=== PATIENT | female | born 1955 | race Caucasian/White ===

== ENCOUNTER 2017-08-25 20:22 | Observation (INO) ==
[2017-08-25] MEDS ORDERED: Aspirin 81 MG TAB.CHEW PO ONE (21:08)
--- NOTE | 2017-08-25 21:11 | Emergency Department Note ---
Disposition Clinical Impression: Chest pain Qualifiers: Chest pain type: unspecified Qualified Code(s): R07.9 - Chest pain, unspecified Disposition: Admitted As Inpatient Condition: Good Referrals: Gregory Todd DO [Primary Care Provider] - Forms: ED Satisfaction Letter Time of Disposition: 23:21 Chest Pain HPI - General Chief Complaint: ED Chest Pain Stated Complaint: chest pain, high heart rate, Time Seen by Provider: 08/25/17 21:00 Source: patient Mode of arrival: ambulatory Limitations: no limitations Vital Signs Reviewed: Yes Nursing Notes Reviewed: Yes - History of Present Illness HPI Narrative: 61-year-old female with a history of hypertension, diabetes, status post stents on aspirin and Brilenta presents for evaluation of chest pain. Patient states symptom onset was just prior to arrival. Patient describes retrosternal chest pressure with radiation to her left shoulder and left jaw. Patient states that over the past couple days she has been having intermittent left arm pain. Patient reports some nausea but no vomiting. No diaphoresis. No fevers or cough. Patient states his symptoms were nonexertional. No reproducible pain. Patient denies having history of a heart attack but does state that she had stents placed. Patient states that a couple days ago she did have a headache with some vomiting but otherwise she was feeling okay. Severity scale (1-10): 6 - Related Data Home Medications Medication Instructions Recorded Confirmed Atorvastatin [Lipitor] 40 mg PO DAILY 08/24/15 08/25/17 Gabapentin [Neurontin] 600 mg PO TID 08/24/15 08/25/17 Promethazine HCl 12.5 mg PO TID PRN 08/24/15 08/25/17 SUMAtriptan succinate [Imitrex] 50 mg PO Q2H 08/24/15 08/25/17 Ticagrelor [Brilinta] 90 mg PO BID 08/24/15 08/25/17 metFORMIN [Glucophage] 500 mg PO BIDWM 08/24/15 08/25/17 Aspirin 81 mg PO DAILY 01/26/16 08/25/17 Esomeprazole Magnesium [Nexium] 40 mg PO DAILY 01/26/16 08/25/17 Levothyroxine [Synthroid] 88 mcg PO 0630 01/26/16 08/25/17 Losartan Potassium [Cozaar] 50 mg PO BID 01/26/16 08/25/17 Metoprolol XL (24 HR) Succ [Toprol 25 mg PO DAILY 01/26/16 08/25/17 Xl] Lactobacillus Acidophilus 1 mg PO DAILY 08/25/17 08/25/17 [Acidophilus Probiotic] Topiramate [Topiramate] 50 mg PO DAILY 08/25/17 08/25/17 Allergies Allergy/AdvReac Type Severity Reaction Status Date / Time No Known Allergies Allergy Verified 03/06/17 14:32 All systems ED: reviewed and negative except as stated. Constitutional: Denies: fever Cardiovascular: Reports: chest pain Respiratory: Denies: cough, dyspnea Gastrointestinal: Reports: nausea. 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 Absent : tenderness - Respiratory Respiratory exam: Present: normal lung sounds bilaterally. Absent: respiratory distress - Cardiovascular Cardiovascular exam: Present: regular rate, normal rhythm. Absent: systolic murmur - Abdominal Exam Abdominal exam: Present: soft, Non-Tender - Extremities Exam Extremities exam: Present: normal inspection. Absent: pedal edema - Back Exam Back exam: Present: normal inspection - Neurological Exam Neurological exam: Present: alert, oriented X3 - Skin Skin exam: Present: warm, dry, intact, normal color Course Course Narrative: Patient presents with concerns of chest pain. Patient will get a cardiopulmonary evaluation with EKG, chest x-ray troponin. - Reevaluation(s) Reevaluation #1: Patient seen and examined. Patient denies any needs at this time. Time: 21:47 Reevaluation #2: Patient seen and examined. Patient states that the nitroglycerin did not significantly affect her pain. Patient states that her pain has decreased since initial evaluation. Patient's resting comfortably. Given the patient's history is risk factors the patient is high risk and will be admitted for continued evaluation likely provocative cardiopulmonary testing. Time: 22:32 Reevaluation #3: Patient's resting comfortably. No acute distress. Patient's using her phone sitting up. Time: 23:20 Vital Signs Temperature 98.0 F 08/25/17 20:26 Pulse Rate 76 08/25/17 20:26 Respiratory Rate 14 08/25/17 20:26 Blood Pressure 189/103 08/25/17 20:26 O2 Sat by Pulse Oximetry 98 08/25/17 20:26 Temperature 98.0 F 08/25/17 20:26 Pulse Rate 69 08/25/17 22:55 Respiratory Rate 16 08/25/17 22:55 Blood Pressure 129/67 08/25/17 22:55 O2 Sat by Pulse Oximetry 95 08/25/17 22:55 Oxygen Delivery Oxygen Delivery Room Air Chest Pain - MDM Narrative Medical decision making narrative: Patient presents for concerns of chest pain. Patient did have a concerning history with chest pain her left arm left neck and jaw. Patient's chest pain became more pronounced a day but has had intermittent episodes in her left arm and jaw over the past few days. Appears to be nonexertional. Patient likely has some element of unstable angina. Patient does have risk factors including stent placement, hypertension diabetes. Patient's EKG does show some changes from prior EKG in 2016. Patient was given aspirin as well as nitroglycerin. Patient symptoms are less likely consistent with a pulmonary embolism. Patient is not tachycardic, tachypnea or hypoxic. Patient does not have a pleuritic component to her chest pain. Patient will be admitted to the hospital service for further evaluation and monitoring of her chest pain with provocative testing and serial evaluations. - Lab Data Lab results reviewed: Yes I reviewed the patient's lab results. Result diagrams: 08/25/17 21:00 08/25/17 21:00 Lab Results 08/25/17 08/25/17 08/25/17 Range/Units 21:00 21:00 21:00 WBC 7.5 (4.3-11.1) K/mcL RBC 4.34 (3.82-4.97) M/mcL Hgb 13.1 (11.5-15.4) g/dL Hct 41.2 (35.3-44.9) % MCV 94.9 (83.0-100.0) fL MCH 30.2 (28.0-33.3) pg MCHC 31.8 (31.6-35.5) g/dL RDW 13.5 (11.5-14.5) % Plt Count 277 (140-400) K/mcL MPV 10.0 (9.4-12.4) fL Immature Gran % 0.4 (0-4) % Seg Neutrophils % 54.5 % Lymphocytes % 29.4 % Monocytes % 12.0 % Eosinophils % 2.9 % Basophils % 0.8 % Neutrophils # 4.1 (1.6-8.9) K/mcL Lymphocytes # 2.2 (0.6-4.6) K/mcL Monocytes # 0.9 (0.0-1.3) K/mcL Eosinophils # 0.2 (0.0-0.6) K/mcL Basophils # 0.1 (0.0-0.2) K/mcL PT 16.0 H (9.4-12.1) Seconds INR 1.5 APTT 41.9 H (26.0-36.0) Seconds Sodium (136-145) mEq/L Potassium (3.5-5.1) mEq/L Chloride (98-107) mEq/L Carbon Dioxide (23-29) mEq/L BUN (6-20) mg/dL Creatinine (0.60-1.20) mg/dL Est GFR ( Amer) (> 60) Est GFR (Non-Af Amer) (> 60) BUN/Creatinine Ratio (6-26) Glucose (70-105) mg/dL Calculated Osmolality (280-300) Calcium (8.6-10.3) mg/dL Troponin I (< 0.04) ng/mL B-Natriuretic Peptide 27 (Less than 100) pg/mL 08/25/17 Range/Units 21:00 WBC (4.3-11.1) K/mcL RBC (3.82-4.97) M/mcL Hgb (11.5-15.4) g/dL Hct (35.3-44.9) % MCV (83.0-100.0) fL MCH (28.0-33.3) pg MCHC (31.6-35.5) g/dL RDW (11.5-14.5) % Plt Count (140-400) K/mcL MPV (9.4-12.4) fL Immature Gran % (0-4) % Seg Neutrophils % % Lymphocytes % % Monocytes % % Eosinophils % % Basophils % % Neutrophils # (1.6-8.9) K/mcL Lymphocytes # (0.6-4.6) K/mcL Monocytes # (0.0-1.3) K/mcL Eosinophils # (0.0-0.6) K/mcL Basophils # (0.0-0.2) K/mcL PT (9.4-12.1) Seconds INR APTT (26.0-36.0) Seconds Sodium 142 (136-145) mEq/L Potassium 3.4 L (3.5-5.1) mEq/L Chloride 107 (98-107) mEq/L Carbon Dioxide 25 (23-29) mEq/L BUN 20 (6-20) mg/dL Creatinine 0.79 (0.60-1.20) mg/dL Est GFR ( Amer) > 60 (> 60) Est GFR (Non-Af Amer) > 60 (> 60) BUN/Creatinine Ratio 25 (6-26) Glucose 104 (70-105) mg/dL Calculated Osmolality 297 (280-300) Calcium 9.6 (8.6-10.3) mg/dL Troponin I < 0.03 (< 0.04) ng/mL B-Natriuretic Peptide (Less than 100) pg/mL - Radiology Data Radiology results reviewed: Yes I reviewed the patient's radiology results. Chest X-Ray 08/25/17 21:01 IMPRESSION: No acute process. D/ / Joseph Issa MD / Joseph Issa MD Interpreting Provider: Joseph Issa MD - EKG Data EKG attestation: Yes I reviewed and interpreted this EKG. EKG shows normal: sinus rhythm Rate: normal Rhythm: NSR Yoder/QRS: left axis deviation Q waves: v1, v2, v3 QRS morphology: poor R-wave progression When compared to previous EKG there are: changes noted Interpretation: no acute changes, nonspecific ST-T wave changes Heart Score - Score History: Highly Suspicious EKG: Non Specific repolarisation Disturbance Age: 45-65 Risk Factors: Equal/Greater than 3 risk factor or history of atherosclerotic disease Troponin: Less than normal limit HEART Score Total: 6 S.B.A.R. - S.B.A.RAinsley Situation: Demographics Background: Presenting Complaint Assessment: Vital Signs, Patient/Family Expectation Recommendation: Barrier(s) to disposition, Recommendation based on pending studies, treatments, or consults S.B.A.RAinsley Report Given to: Dr. Douglas ColemanBAinsleyAAlberto Repor Time: 23:08
[2017-08-25 21:18] LABS: Basophils # 0.1 K/mcL (0.0-0.2); Basophils % 0.8 %; Eosinophils # 0.2 K/mcL (0.0-0.6); Eosinophils % 2.9 %; Hematocrit 41.2 % (35.3-44.9); Hemoglobin 13.1 g/dL (11.5-15.4); Immature Granulocytes % 0.4 % (0-4); Lymphocytes # 2.2 K/mcL (0.6-4.6); Lymphocytes % 29.4 %; Mean Corpuscular HGB Conc 31.8 g/dL (31.6-35.5); Mean Corpuscular Hemoglobin 30.2 pg (28.0-33.3); Mean Corpuscular Volume 94.9 fL (83.0-100.0); Monocytes # 0.9 K/mcL (0.0-1.3); Neutrophils # 4.1 K/mcL (1.6-8.9); Platelet Count 277 K/mcL (140-400); Red Blood Count 4.34 M/mcL (3.82-4.97); Red Cell Distribution Width 13.5 % (11.5-14.5); Segmented Neutrophils % 54.5 %
[2017-08-25 21:39] LABS: BUN/Creatinine Ratio 25 (6-26); Blood Urea Nitrogen 20 mg/dL (6-20); Calcium 9.6 mg/dL (8.6-10.3); Carbon Dioxide 25 mEq/L (23-29); Chloride 107 mEq/L (98-107); Glucose 104 mg/dL (70-105); Osmolality,Calculated 297 (280-300); Potassium 3.4 mEq/L (3.5-5.1); Sodium 142 mEq/L (136-145); Troponin I < 0.03 ng/mL (< 0.04); eGFR For African Americans > 60 (> 60); eGFR For Non-African Americans > 60 (> 60)
[2017-08-25] MEDS: Nitroglycerin 0.4 MG TAB.SUBL SL PRN ×2 (21:47→22:04)
[2017-08-25 21:58] LABS: INR 1.5
[2017-08-25 22:00] LABS: Activated Partial Thrombo Time 41.9 Seconds (26.0-36.0)
--- NOTE | 2017-08-25 22:00 | Emergency Department Note ---
Disposition Clinical Impression: Chest pain Qualifiers: Chest pain type: unspecified Qualified Code(s): R07.9 - Chest pain, unspecified Disposition: Admitted As Inpatient Condition: Good Referrals: Gregory Todd DO [Primary Care Provider] - Forms: ED Satisfaction Letter General Adult HPI - General Chief complaint: ED Chest Pain Stated complaint: chest pain, high heart rate, Time Seen by Provider: 08/25/17 21:00 Source: patient Mode of arrival: ambulatory Limitations: no limitations Nursing Notes Reviewed: Yes Vital Signs Reviewed: Yes - History of Present Illness Pain Scale: 6 - Related Data Home Medications Medication Instructions Recorded Confirmed Atorvastatin [Lipitor] 40 mg PO DAILY 08/24/15 08/25/17 Gabapentin [Neurontin] 600 mg PO TID 08/24/15 08/25/17 Promethazine HCl 12.5 mg PO TID PRN 08/24/15 08/25/17 SUMAtriptan succinate [Imitrex] 50 mg PO Q2H 08/24/15 08/25/17 Ticagrelor [Brilinta] 90 mg PO BID 08/24/15 08/25/17 metFORMIN [Glucophage] 500 mg PO BIDWM 08/24/15 08/25/17 Aspirin 81 mg PO DAILY 01/26/16 08/25/17 Esomeprazole Magnesium [Nexium] 40 mg PO DAILY 01/26/16 08/25/17 Levothyroxine [Synthroid] 88 mcg PO 0630 01/26/16 08/25/17 Losartan Potassium [Cozaar] 50 mg PO BID 01/26/16 08/25/17 Metoprolol XL (24 HR) Succ [Toprol 25 mg PO DAILY 01/26/16 08/25/17 Xl] Lactobacillus Acidophilus 1 mg PO DAILY 08/25/17 08/25/17 [Acidophilus Probiotic] Topiramate [Topiramate] 50 mg PO DAILY 08/25/17 08/25/17 Allergies Allergy/AdvReac Type Severity Reaction Status Date / Time No Known Allergies Allergy Verified 03/06/17 14:32 Constitutional: Denies: fever Cardiovascular: Reports: chest pain Respiratory: Denies: cough, dyspnea Gastrointestinal: Reports: nausea. 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 - Social History Smoking Status: Never smoker Smokeless Tobacco Status: No Alcohol use: Reports: none Drug use: Reports: none Physical Exam - General Limitations: no limitations General appearance: alert, in no apparent distress Course Vital Signs Temperature 98.0 F 08/25/17 20:26 Pulse Rate 76 08/25/17 20:26 Respiratory Rate 14 08/25/17 20:26 Blood Pressure 189/103 08/25/17 20:26 O2 Sat by Pulse Oximetry 98 08/25/17 20:26 Temperature 98.0 F 08/25/17 20:26 Pulse Rate 69 08/25/17 22:55 Respiratory Rate 16 08/25/17 22:55 Blood Pressure 129/67 08/25/17 22:55 O2 Sat by Pulse Oximetry 95 08/25/17 22:55 Oxygen Delivery Oxygen Delivery Room Air Medical Decision Making - Lab Data Result diagrams: 08/25/17 21:00 08/25/17 21:00 Lab Results 08/25/17 08/25/17 08/25/17 Range/Units 21:00 21:00 21:00 WBC 7.5 (4.3-11.1) K/mcL RBC 4.34 (3.82-4.97) M/mcL Hgb 13.1 (11.5-15.4) g/dL Hct 41.2 (35.3-44.9) % MCV 94.9 (83.0-100.0) fL MCH 30.2 (28.0-33.3) pg MCHC 31.8 (31.6-35.5) g/dL RDW 13.5 (11.5-14.5) % Plt Count 277 (140-400) K/mcL MPV 10.0 (9.4-12.4) fL Immature Gran % 0.4 (0-4) % Seg Neutrophils % 54.5 % Lymphocytes % 29.4 % Monocytes % 12.0 % Eosinophils % 2.9 % Basophils % 0.8 % Neutrophils # 4.1 (1.6-8.9) K/mcL Lymphocytes # 2.2 (0.6-4.6) K/mcL Monocytes # 0.9 (0.0-1.3) K/mcL Eosinophils # 0.2 (0.0-0.6) K/mcL Basophils # 0.1 (0.0-0.2) K/mcL PT 16.0 H (9.4-12.1) Seconds INR 1.5 APTT 41.9 H (26.0-36.0) Seconds Sodium (136-145) mEq/L Potassium (3.5-5.1) mEq/L Chloride (98-107) mEq/L Carbon Dioxide (23-29) mEq/L BUN (6-20) mg/dL Creatinine (0.60-1.20) mg/dL Est GFR ( Amer) (> 60) Est GFR (Non-Af Amer) (> 60) BUN/Creatinine Ratio (6-26) Glucose (70-105) mg/dL Calculated Osmolality (280-300) Calcium (8.6-10.3) mg/dL Troponin I (< 0.04) ng/mL B-Natriuretic Peptide 27 (Less than 100) pg/mL 08/25/17 Range/Units 21:00 WBC (4.3-11.1) K/mcL RBC (3.82-4.97) M/mcL Hgb (11.5-15.4) g/dL Hct (35.3-44.9) % MCV (83.0-100.0) fL MCH (28.0-33.3) pg MCHC (31.6-35.5) g/dL RDW (11.5-14.5) % Plt Count (140-400) K/mcL MPV (9.4-12.4) fL Immature Gran % (0-4) % Seg Neutrophils % % Lymphocytes % % Monocytes % % Eosinophils % % Basophils % % Neutrophils # (1.6-8.9) K/mcL Lymphocytes # (0.6-4.6) K/mcL Monocytes # (0.0-1.3) K/mcL Eosinophils # (0.0-0.6) K/mcL Basophils # (0.0-0.2) K/mcL PT (9.4-12.1) Seconds INR APTT (26.0-36.0) Seconds Sodium 142 (136-145) mEq/L Potassium 3.4 L (3.5-5.1) mEq/L Chloride 107 (98-107) mEq/L Carbon Dioxide 25 (23-29) mEq/L BUN 20 (6-20) mg/dL Creatinine 0.79 (0.60-1.20) mg/dL Est GFR ( Amer) > 60 (> 60) Est GFR (Non-Af Amer) > 60 (> 60) BUN/Creatinine Ratio 25 (6-26) Glucose 104 (70-105) mg/dL Calculated Osmolality 297 (280-300) Calcium 9.6 (8.6-10.3) mg/dL Troponin I < 0.03 (< 0.04) ng/mL B-Natriuretic Peptide (Less than 100) pg/mL Attestation Statement - Attestation Attestation: I, Arsh Aquino MD, personally evaluated this patient and discussed their management with the resident physician. I reviewed the resident's note and agree with the documented findings, medical decision making, and plan of care. 61-year-old female presents to the emergency department with a complaint of some mid substernal chest pains which started a few hours prior to arrival. Onset was while at rest. She complains of shortness of breath associated with the pain. Nausea but no vomiting. No diaphoresis. She also complains of palpitations and felt like her heart was racing. Patient does have a prior history of coronary artery disease and has a coronary artery stent. She also admits that over the past 2 or 3 days she has been having some pains in her left arm intermittently that sometimes radiates up into the left side of her neck and the left jaw. She does have pain in the left arm tonight associated with the chest pain. On examination patient is a well-developed well-nourished well-appearing female in no acute distress. She is alert and oriented 3. There is no cyanosis or diaphoresis. Chest is nontender to palpation. Breath sounds are clear and equal bilaterally. Heart regular rate and rhythm. Abdomen soft and nontender with normal bowel sounds. Labs reviewed. Troponin normal. Chest x-ray negative. EKG shows a normal sinus rhythm with ventricular rate is 75. Poor R wave progression consistent with an old anterior NV. This was not present on her previous EKG dated 2015. There are no acute ST segment elevations or depressions or T-wave inversions. The hospitalist, Dr. Cole, was consulted and accepted admission of the patient.
--- NOTE | 2017-08-26 00:02 | Internal Med History&Physical ---
Date of Encounter: 08/26/17 Time of Encounter: 23:53 Internal Medicine - H&P: HPI Chief complaint: chest pain Admitted From: Emergency Dept Plans for Post Hospital Care: Home History of present illness: Ms. 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 chest pain became worse and she came into the emergency room was given sublingual 2 and the chest is subsided but not completely resolved EKG was abnormal showing anteroseptal WI age undetermined with poor r wave progression in the precordial leads patient will be admitted for follow evaluation will trend troponin and consult cardiology Past Med Surg Social Fam HX - Past Medical History Medical history: arthritis, diabetes, GERD, hyperlipidemia, hypertension, thyroid disease Psychiatric history: anxiety, depression - Past Surgical History Surgical History: thyroidectomy - Social History Smoking Status: Never smoker Smokeless Tobacco Status: No Alcohol use: none Drug use: none Internal Medicine - H&P: Meds Atorvastatin [Lipitor] 40 mg PO DAILY 08/24/15 [History] Gabapentin [Neurontin] 600 mg PO TID 08/24/15 [History] Promethazine HCl 12.5 mg PO TID PRN 08/24/15 [History] SUMAtriptan succinate [Imitrex] 50 mg PO Q2H 08/24/15 [History] Ticagrelor [Brilinta] 90 mg PO BID 08/24/15 [History] metFORMIN [Glucophage] 500 mg PO BIDWM 08/24/15 [History] Aspirin 81 mg PO DAILY 01/26/16 [History] Esomeprazole Magnesium [Nexium] 40 mg PO DAILY 01/26/16 [History] Levothyroxine [Synthroid] 88 mcg PO 0630 01/26/16 [History] Losartan Potassium [Cozaar] 50 mg PO BID 01/26/16 [History] Metoprolol XL (24 HR) Succ [Toprol Xl] 25 mg PO DAILY 01/26/16 [History] Lactobacillus Acidophilus [Acidophilus Probiotic] 1 mg PO DAILY 08/25/17 [ History] Topiramate [Topiramate] 50 mg PO DAILY 08/25/17 [History] 3 Allergy/AdvReac Type Severity Reaction Status Date / Time No Known Allergies Allergy Verified 03/06/17 14:32 All Systems PM: A 10-system review of systems was performed and is negative for pertinent findings except as documented above in the HPI. - Constitutional Vitals: Temp Pulse Resp BP Pulse Ox 98.0 F 69 16 129/67 95 08/25/17 20:26 08/25/17 22:55 08/25/17 22:55 08/25/17 22:55 08/25/17 22:55 - Head Head exam: Present: atraumatic, normocephalic - Eye Eye exam: Present: PERRL, conjuntiva pink, sclera anicteric Pupils: Present: PERRL - Neck Neck exam general surgery: Present: supple, trachea midline. Absent: lymphadenopathy - Respiratory Respiratory exam: Present: CTAB. Absent: accessory muscle use, rales, rhonchi, wheezes - Cardiovascular Cardiovascular exam: Present: RRR, +S1, +S2. Absent: diastolic murmur, gallop, rubs, systolic murmur - GI/Abdominal GI/Abdominal exam: Present: normal bowel sounds, soft, no peritoneal signs. Absent: distended, tenderness - Extremities Exam Extremities exam: Present: warm, radial pulses palpable and symmetrical. Absent : calf tenderness, cyanotic, pedal edema Internal Med - H&P Results - Labs CBC & Chem 7: 08/25/17 21:00 08/25/17 21:00 Labs: Short CBC 08/25/17 Range/Units 21:00 WBC 7.5 (4.3-11.1) K/mcL Hgb 13.1 (11.5-15.4) g/dL Hct 41.2 (35.3-44.9) % Plt Count 277 (140-400) K/mcL Neutrophils # 4.1 (1.6-8.9) K/mcL BMP 08/25/17 21:00 Sodium 142 Potassium 3.4 L Chloride 107 Carbon Dioxide 25 BUN 20 Creatinine 0.79 Glucose 104 Calcium 9.6 Cardiac Enzymes 08/25/17 Range/Units 21:00 Troponin I < 0.03 (< 0.04) ng/mL - Impressions ITS Impressions Chest X-Ray 08/25/17 21:01 IMPRESSION: No acute process. D/ / Joseph Issa MD / Joseph Issa MD Interpreting Provider: Joseph Issa MD - Assessment and plan (1) HTN (hypertension) Current Visit: Yes Status: Chronic Assessment and plan: Chronic and well controlled Qualifiers: Hypertension type: essential hypertension Qualified Code(s): I10 - Essential (primary) hypertension (2) Diabetes 1.5, managed as type 2 Current Visit: Yes Status: Chronic Assessment and plan: Chronic start sliding scale (3) Hyperlipemia Current Visit: Yes Status: Chronic Qualifiers: Hyperlipidemia type: pure hypercholesterolemia Qualified Code(s): E78.00 - Pure hypercholesterolemia, unspecified; E78.0 - Pure hypercholesterolemia (4) Chest pain Current Visit: Yes Status: Acute Assessment and plan: Chest pain in a patient with previous stent record of intervention is not available with the risk factors of hypertension diabetes high cholesterol and obesity chest pain is very suggestive of cardiac chest pain we will trend troponin and consult cardiology in a.m. to decide on stress test versus cardiac catheter Qualifiers: Chest pain type: precordial pain Qualified Code(s): R07.2 - Precordial pain - Time Spent With Patient Total time spent is greater than 50% in coordination of care (as documented) at patient's floor/unit and/or counseling patient:
[2017-08-26] MEDS ORDERED: Acetaminophen 325 MG TABLET PO PRN (00:07)
[2017-08-26] MEDS ORDERED: Naloxone 0.4 MG/ML INJ IVP PRN (00:07)
[2017-08-26] MEDS ORDERED: SUMAtriptan succinate 50 MG TABLET PO PRN (00:15)
[2017-08-26 00:54] LABS: Hematocrit 37.8 % (35.3-44.9); Hemoglobin 12.2 g/dL (11.5-15.4); Mean Corpuscular HGB Conc 32.3 g/dL (31.6-35.5); Mean Corpuscular Hemoglobin 30.4 pg (28.0-33.3); Mean Corpuscular Volume 94.3 fL (83.0-100.0); Platelet Count 247 K/mcL (140-400); Red Blood Count 4.01 M/mcL (3.82-4.97); Red Cell Distribution Width 13.6 % (11.5-14.5)
[2017-08-26 01:07] LABS: Alanine Aminotransferase 22 Units/L (7-52); Albumin/Globulin Ratio 1.7 (1.1-2.2); Alkaline Phosphatase 59 Units/L (34-104); Aspartate Amino Transferase 18 Units/L (13-39); BUN/Creatinine Ratio 33 (6-26); Bilirubin,Total 0.3 mg/dL (0.3-1.0); Blood Urea Nitrogen 24 mg/dL (6-20); Calcium 9.2 mg/dL (8.6-10.3); Carbon Dioxide 24 mEq/L (23-29); Chloride 110 mEq/L (98-107); Chol/HDL Ratio 2.9 (0-4.9); Cholesterol 160 mg/dL (< 200); Globulin 2.3 g/dL (2.4-3.5); Glucose 90 mg/dL (70-105); HDL Cholesterol 55 mg/dL (40-59); LDL Cholesterol,Calculated 65 mg/dL (0-99); Osmolality,Calculated 296 (280-300); Potassium 3.8 mEq/L (3.5-5.1); Sodium 141 mEq/L (136-145); Total Protein 6.3 g/dL (6.4-8.9); Triglycerides 200 mg/dL (< 150); eGFR For African Americans > 60 (> 60); eGFR For Non-African Americans > 60 (> 60)
[2017-08-26] MEDS: 0.9 % Sodium Chloride 1,000 ML IVC SCH ×2 (01:51→19:53)
[2017-08-26] MEDS ORDERED: D5% in Water 1,000 ML IVC PRN (13:05)
[2017-08-26] MEDS ORDERED: *HR* Dextrose 50 % in Water (Syg) 50 ML SYRINGE IVP PRN (13:05)
[2017-08-26] MEDS ORDERED: Dextrose Gel 15 GM/37.5 ML TUBE PO PRN ×2 (13:05)
[2017-08-26 13:22] LABS: Estimated Average Glucose 123 mg/dl; Hemoglobin A1C 5.9 %
[2017-08-26] MEDS: Aspirin 81 MG TAB.CHEW PO SCH (14:19)
[2017-08-26] MEDS: Gabapentin 300 MG CAPSULE PO SCH ×3 (14:19→19:55)
[2017-08-26] MEDS: Metoprolol XL (24 HR) Succ 25 MG TAB.ER.24H PO SCH (14:19)
[2017-08-26] MEDS: *HR* Ticagrelor 90 MG TABLET PO SCH ×2 (14:19→19:55)
[2017-08-26] MEDS: Topiramate 25 MG TABLET PO SCH (14:19)
[2017-08-26] MEDS: Lactobacillus 1 EACH CAP.SPRINK PO SCH (14:22)
--- NOTE | 2017-08-26 15:43 | Discharge Summary ---
- NOTES TO OUTPATIENT PROVIDER Notes to Outpatient Provider: Pt was admitted for chest pain. Stress negative, pEF, chest xray negative, troponins negative. Pain is non-cardiac and is reproducible with adduction of left arm and palpation to left anterior chest wall. Orders not resulted at time of discharge: Pending orders 08/26/17 08:23 NM dc perf SPECT multi [NM] Routine 08/26/17 08:25 EV echocardiogram Routine Date of Encounter: 08/26/17 Time of Encounter: 15:20 - Discharge Diagnosis (1) Chest pain Priority: Primary Status: Acute Assessment and Plan: Pt reports that she has pain in her left shoulder and left anterior chest for 2- 3 days, states that on the day of admission it was chest pressure and tightness with some nausea. Pain was relieved with nitroglycerin in the ED. EKG was abnormal with age indeterminate [place], troponins negative, Chest xray negative for acute process. Pain is reproducible with adduction of left arm and with palpation to left anterior chest. Pain is non-cardiac in nature, more musculoskeletal, pt has history of arthritis. Echo is still pending, will wait on completion and read prior to discharge. Continue telemetry Continue home medications Lidoderm patch to left shoulder Qualifiers: Chest pain type: precordial pain Qualified Code(s): R07.2 - Precordial pain (2) Diabetes 1.5, managed as type 2 Priority: Secondary Status: Chronic Assessment and Plan: A1c 5.9%. Continue SSI, accuchecks achs, diabetic diet. (3) HTN (hypertension) Priority: Secondary Status: Chronic Assessment and Plan: Chronic. Continue home medications. Qualifiers: Hypertension type: essential hypertension Qualified Code(s): I10 - Essential (primary) hypertension (4) Hyperlipemia Priority: Secondary Status: Chronic Assessment and Plan: Chronic. Continue home medications. Qualifiers: Hyperlipidemia type: pure hypercholesterolemia Qualified Code(s): E78.00 - Pure hypercholesterolemia, unspecified; E78.0 - Pure hypercholesterolemia (5) Migraines Priority: Secondary Status: Chronic Assessment and Plan: Pt reports history of migraines, last one last night on admission. Pt did get NTG Sl in the ER. Pt normally takes Imitrex at home, continue prn. Qualifiers: Migraine type: unspecified Status migrainosus presence: without status migrainosus Intractability: not intractable Qualified Code(s): G43.909 - Migraine, unspecified, not intractable, without status migrainosus (6) DVT prophylaxis Priority: Secondary Status: Acute Assessment and Plan: Observation. Pt has been ambulatory. Hospital course: Ms. Esparza is a 61 year old female with PMH of migraines, HTN, HLD, chronic back pain, DM. Pt presents for left shoulder pain with radiation to left chest for 2 days prior to arrival. EKG showed age indeterminate KS, troponins were negative, chest xray negative. Echo is pending at this time. Chest and shoulder pain are reproducible with adduction of left arm and with palpation to left anterior chest wall. Pain is non-cardiac in nature. Her labs are stable, vitals are stable and WNL. Pt is ready for discharge if echocardiogram is normal. Discharge discussed with: patient, family - Time Spent with Patient Total time spent providing and/or coordinating discharge services: Less than 30 minutes - Discharge Medications Home Medications: Atorvastatin [Lipitor] 40 mg PO DAILY 08/24/15 [History] Gabapentin [Neurontin] 600 mg PO TID 08/24/15 [History] Promethazine HCl 12.5 mg PO TID PRN 08/24/15 [History] SUMAtriptan succinate [Imitrex] 50 mg PO Q2H 08/24/15 [History] Ticagrelor [Brilinta] 90 mg PO BID 08/24/15 [History] metFORMIN [Glucophage] 500 mg PO BIDWM 08/24/15 [History] Aspirin 81 mg PO DAILY 01/26/16 [History] Esomeprazole Magnesium [Nexium] 40 mg PO DAILY 01/26/16 [History] Levothyroxine [Synthroid] 88 mcg PO 0630 01/26/16 [History] Losartan Potassium [Cozaar] 50 mg PO BID 01/26/16 [History] Metoprolol XL (24 HR) Succ [Toprol Xl] 25 mg PO DAILY 01/26/16 [History] Lactobacillus Acidophilus [Acidophilus Probiotic] 1 mg PO DAILY 08/25/17 [ History] Topiramate [Topiramate] 50 mg PO DAILY 08/25/17 [History] Allergies/Adverse Reactions: 3 Allergy/AdvReac Type Severity Reaction Status Date / Time No Known Allergies Allergy Verified 03/06/17 14:32 Date of admission: 08/25/17 23:41 Primary care physician: Gregory Todd DO Discharging clinician: Anastasia Edge Anticipated date of discharge: 08/26/17 - Constitutional Vitals: Temp Pulse Resp BP Pulse Ox 97.5 F L 71 16 151/83 96 08/26/17 06:57 08/26/17 06:57 08/26/17 06:57 08/26/17 06:57 08/26/17 06:57 - Patient Status Disposition: Home, Self-Care Condition: Good Functional capacity at discharge: independent ambulation Overall status at discharge: patient is progressing back to baseline - Discharge Instructions Follow Up With: Gregory Todd DO [Primary Care Provider] - Additional Instructions: Please follow up with your PCP in the next 5-7 days for a recheck. Return to the ER as needed for any other problems or concerns. Take your medications as directed. REturn to your normal diet and activities as tolerated. - Diet and Activity Activity: increase activity as tolerated Diet: diabetic diet, low fat, low cholesterol
[2017-08-26] MEDS: traMADol 50 MG TABLET PO PRN (16:30)
[2017-08-26] MEDS: Insulin LISPRO 300 UNITS/3 ML VIAL SQ SCH (17:09)
--- NOTE | 2017-08-26 19:27 | Electrocardiograph Report ---
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
[2017-08-26] MEDS ORDERED: Insulin LISPRO 300 UNITS/3 ML VIAL SQ SCH (21:00)
[2017-08-27 05:51] LABS: Basophils # 0.1 K/mcL (0.0-0.2); Basophils % 1.1 %; Eosinophils # 0.3 K/mcL (0.0-0.6); Eosinophils % 5.3 %; Hematocrit 36.8 % (35.3-44.9); Hemoglobin 11.7 g/dL (11.5-15.4); Immature Granulocytes % 0.4 % (0-4); Lymphocytes # 1.7 K/mcL (0.6-4.6); Lymphocytes % 29.9 %; Mean Corpuscular HGB Conc 31.8 g/dL (31.6-35.5); Mean Corpuscular Hemoglobin 30.2 pg (28.0-33.3); Mean Corpuscular Volume 95.1 fL (83.0-100.0); Mean Platelet Volume 10.5 fL (9.4-12.4); Monocytes # 0.6 K/mcL (0.0-1.3); Monocytes % 10.8 %; Nucleated Red Blood Cells 0.4 /100 WBC (0); Platelet Count 224 K/mcL (140-400); Red Blood Count 3.87 M/mcL (3.82-4.97); Red Cell Distribution Width 13.5 % (11.5-14.5); Segmented Neutrophils % 52.5 %
[2017-08-27 06:09] LABS: BUN/Creatinine Ratio 23 (6-26); Blood Urea Nitrogen 17 mg/dL (6-20); Calcium 8.9 mg/dL (8.6-10.3); Carbon Dioxide 22 mEq/L (23-29); Chloride 111 mEq/L (98-107); Glucose 107 mg/dL (70-105); Osmolality,Calculated 290 (280-300); Potassium 3.6 mEq/L (3.5-5.1); Sodium 139 mEq/L (136-145); eGFR For African Americans > 60 (> 60); eGFR For Non-African Americans > 60 (> 60)
[2017-08-27] MEDS: Gabapentin 300 MG CAPSULE PO SCH (08:13)
[2017-08-27] MEDS: Aspirin 81 MG TAB.CHEW PO SCH (08:13)
[2017-08-27] MEDS: Topiramate 25 MG TABLET PO SCH (08:13)
[2017-08-27] MEDS: Lactobacillus 1 EACH CAP.SPRINK PO SCH (08:13)
[2017-08-27] MEDS: *HR* Ticagrelor 90 MG TABLET PO SCH (08:13)
[2017-08-27] MEDS: Insulin LISPRO 300 UNITS/3 ML VIAL SQ SCH ×2 (08:14→11:49)
[2017-08-27] MEDS: Metoprolol XL (24 HR) Succ 25 MG TAB.ER.24H PO SCH (08:14)
[2017-08-27] MEDS: traMADol 50 MG TABLET PO PRN (08:26)
--- NOTE | 2017-08-27 10:32 | Internal Med Progress Note ---
Date of Encounter: 08/27/17 Time of Encounter: 09:25 - Assessment and plan (1) Chest pain Current Visit: Yes Status: Acute Assessment and plan: Pt denies chest pain other than pain that radiates into left chest from left shoulder Echo showed LVEF 60-65%, mild LVDD, and no significant valvular dysfunction. EKG was abnormal with age indeterminate [place], troponins negative, Chest xray negative for acute process. Pain is reproducible with adduction of left arm and with palpation to left anterior chest. Pain is non-cardiac in nature, more musculoskeletal, pt has history of arthritis. Continue telemetry Continue home medications Lidoderm patch to left shoulder Qualifiers: Chest pain type: precordial pain Qualified Code(s): R07.2 - Precordial pain (2) Diabetes 1.5, managed as type 2 Current Visit: Yes Status: Chronic Assessment and plan: A1c 5.9%. Continue Metformin, accuchecks per home regimen. (3) HTN (hypertension) Current Visit: Yes Status: Chronic Assessment and plan: Chronic. Continue home medications. Well controlled . Qualifiers: Hypertension type: essential hypertension Qualified Code(s): I10 - Essential (primary) hypertension (4) Hyperlipemia Current Visit: Yes Status: Chronic Assessment and plan: Chronic. Continue home medications. Encouraged lifestyle modifications. Triglycerides elevated, Encouraged diet modifications and exercise increase. Qualifiers: Hyperlipidemia type: pure hypercholesterolemia Qualified Code(s): E78.00 - Pure hypercholesterolemia, unspecified; E78.0 - Pure hypercholesterolemia (5) Migraines Current Visit: Yes Status: Chronic Assessment and plan: Pt reports history of migraines. Pt normally takes Imitrex at home, continue prn. Qualifiers: Migraine type: unspecified Status migrainosus presence: without status migrainosus Intractability: not intractable Qualified Code(s): G43.909 - Migraine, unspecified, not intractable, without status migrainosus (6) DVT prophylaxis Current Visit: Yes Status: Acute Assessment and plan: Observation. Pt has been ambulatory. (7) Left shoulder pain Current Visit: Yes Status: Acute Assessment and plan: Pt reports left shoulder pain, onset prior to admission. Pt denies known injury. Pain worse with adduction of left arm, pain radiates into left upper chest. Xray negative for acute fracture or dislocation, noted bone spurring. Pt will be given Tramadol 50mg and lidoderm patches for home. Encouraged pt to follow up with PCP for further workup/imaging. Shoulder X-Ray 08/27/17 10:18 IMPRESSION: No acute osseous abnormality. Mild degenerative acromioclavicular spurring is noted. D/ / New Shabazz MD / New Shabazz MD Interpreting Provider: New Shabazz MD Qualifiers: Chronicity: acute Qualified Code(s): M25.512 - Pain in left shoulder - Time Spent With Patient Total time spent is greater than 50% in coordination of care (as documented) at patient's floor/unit and/or counseling patient: less than 15 minutes - Subjective Interval history: Pt was seen and assessed at bedside at 0925. She is alert and awake and states that she is ready to go home. She reports continued left shoulder pain with movement, specifically adduction of left arm. She denies chest pain other than pain that radiates into left upper chest with movement of left shoulder. She denies n/v, SOB, abdominal pain, headache, dizziness, vision changes, or diarrhea. - Constitutional Vitals: Temp Pulse Resp BP Pulse Ox 97.7 F 55 16 168/87 96 08/27/17 07:45 08/27/17 07:45 08/27/17 07:45 08/27/17 07:45 08/27/17 07:45 General appearance: Present: cooperative, A&O X 3, pleasant, no acute distress, answers questions appropriately - Head Head exam: Present: atraumatic, normal inspection, normocephalic - Eye Eye exam: Present: normal appearance, conjuntiva pink, sclera anicteric - Neck Neck exam general surgery: Present: normal inspection, supple, trachea midline. Absent: lymphadenopathy, tenderness - Respiratory Respiratory exam: Present: CTAB. Absent: accessory muscle use, rales, respiratory distress, rhonchi, wheezes - Cardiovascular Cardiovascular exam: Present: RRR, +S1, +S2. Absent: diastolic murmur, gallop, rubs, systolic murmur - GI/Abdominal GI/Abdominal exam: Present: normal bowel sounds, soft. Absent: distended, hepatomegaly, tenderness - Extremities Exam Extremities exam: Present: normal capillary refill, normal inspection, warm, radial pulses palpable and symmetrical. Absent: calf tenderness, cyanotic, pedal edema, tenderness - Expanded Upper Extremities Exam General: Present: normal inspection Upper Arm exam: Present: full ROM, tenderness. Absent: swelling Vascular exam: Present: normal capillary refill, radial pulse left. Absent: vascular compromise - Neurological Exam Neurological exam: Present: alert, oriented X3, no focal deficits. Absent: facial droop, speech deficit - Skin Skin exam: Present: dry, intact, normal color, warm. Absent: rash Internal Medicine: Result - Labs CBC & Chem 7: 08/27/17 05:13 08/27/17 05:13 Labs: Short CBC 08/27/17 Range/Units 05:13 WBC 5.7 (4.3-11.1) K/mcL Hgb 11.7 (11.5-15.4) g/dL Hct 36.8 (35.3-44.9) % Plt Count 224 (140-400) K/mcL Neutrophils # 3.0 (1.6-8.9) K/mcL BMP 08/27/17 05:13 Sodium 139 Potassium 3.6 Chloride 111 H Carbon Dioxide 22 L BUN 17 Creatinine 0.74 Glucose 107 H Calcium 8.9 - ABG Interpretation ABG results: PT/INR, D-dimer PT 16.0 Seconds (9.4-12.1) H 08/25/17 21:00 - Impressions Impressions Echocardiogram 08/26/17 08:25 Impressions: LVEF 60-65%. Normal LV chamber size, wall thickness and function. Mild left ventricular diastolic dysfunction. Normal right ventricular structure and function. No evidence of pulmonary hypertension. No significant valvular dysfunction. Left Ventricular Wall Motion: Rest Echo Findings All wall segments showed normal motion. Findings: Study Quality * Technically adequate exam. ECG Findings * Normal sinus rhythm. Left Ventricle * LVEF 60-65%. * Normal LV chamber size, wall thickness and function. * Mild left ventricular diastolic dysfunction. Right Ventricle * Normal right ventricular structure and function. Left Atrium * Mildly dilated left atrium. Right Atrium * Normal right atrial size. Interatrial Septum * Interatrial septum not well evaluated. Aortic Valve * Aortic valve not well visualized. * No aortic regurgitation. * No aortic stenosis. Mitral Valve * Normal mitral valve structure and function. * No mitral regurgitation. * No mitral stenosis. Tricuspid Valve * Normal tricuspid valve structure and function. * Trace tricuspid regurgitation. * No evidence of pulmonary hypertension. Pulmonic Valve * Pulmonic valve not well visualized. Aorta * Normally sized aortic root. Pericardium * The pericardium appears normal. IVC * The IVC is not well evaluated. Pulmonary Artery * Pulmonary artery not well visualized. Consult Discharge Plan - Plan Additional Instructions: Please follow up with your PCP in the next 5-7 days for a recheck. Return to the ER as needed for any other problems or concerns. Take your medications as directed. REturn to your normal diet and activities as tolerated. Referrals: Gregory Todd DO [Primary Care Provider] - Prescriptions: Lidocaine Patch [Lidoderm 5% patch] 1 each TP DAILY PRN #30 adh..patch PRN Reason: Pain Tramadol HCl [Ultram] 50 mg PO BID PRN 3 Days #6 tab PRN Reason: Pain
[2017-08-27 11:48] VITALS: BP 156/92
== END 2017-08-27 14:01 | disposition home or self-care (01) ==
LOC: 3BNU 20:22 → EMEROO 20:22 → 3BNU 08-26 00:47
PROVIDERS: ADMIT Internal Medicine; ATTEND Internal Medicine

== ENCOUNTER 2021-10-02 13:11 | Inpatient (IN) ==
[2021-10-02 14:19] LABS: Eosinophils % 2.3 %; Hemoglobin 7.1 g/dL (11.5-15.4)
[2021-10-02 14:21] LABS: Basophils # 0.1 K/mcL (0.0-0.2); Basophils % 0.9 %; Eosinophils # 0.2 K/mcL (0.0-0.6); Hematocrit 26.9 % (35.3-44.9); Immature Granulocytes % 0.3 % (0-4); Immature Platelets 8.3 % (1.1-6.1); Lymphocytes # 1.3 K/mcL (0.6-4.6); Lymphocytes % 19.1 %; Mean Corpuscular HGB Conc 26.4 g/dL (31.6-35.5); Mean Corpuscular Hemoglobin 19.5 pg (28.0-33.3); Mean Corpuscular Volume 73.9 fL (83.0-100.0); Mean Platelet Volume 11.1 fL (9.4-12.4); Monocytes # 0.7 K/mcL (0.0-1.3); Monocytes % 10.5 %; Neutrophils # 4.4 K/mcL (1.6-8.9); Platelet Count 173 K/mcL (140-400); Red Blood Count 3.64 M/mcL (3.82-4.97); Red Cell Distribution Width 19.9 % (11.5-14.5); Segmented Neutrophils % 66.9 %; White Blood Count 6.6 K/mcL (4.3-11.1)
[2021-10-02] MEDS ORDERED: Acetaminophen 325 MG TABLET PO ONE (14:23)
[2021-10-02 14:44] LABS: BUN/Creatinine Ratio 19 (6-26); Blood Urea Nitrogen 14 mg/dL (8-23); Calcium 8.9 mg/dL (8.6-10.3); Carbon Dioxide 25 mEq/L (23-29); Chloride 106 mEq/L (98-107); Glucose 96 mg/dL (70-105); Osmolality,Calculated 288 (280-300); Potassium 3.7 mEq/L (3.5-5.1); Sodium 139 mEq/L (136-145); Troponin I < 0.03 ng/mL (< 0.04); eGFR For African Americans > 60 (> 60); eGFR For Non-African Americans > 60 (> 60)
[2021-10-02 14:56] LABS: Activated Partial Thrombo Time 34.1 Seconds (26.0-36.0)
[2021-10-02 15:35] LABS: Anisocytosis 1+ (Not Present); Hypochromasia Present (Not Present); Large Platelets Present (Not Present); Platelet Estimate Normal (Normal); Poikilocytosis 2+ (Not Present)
[2021-10-02] MEDS ORDERED: Naloxone 0.4 MG/ML INJ IVP PRN (16:29)
[2021-10-02 17:00] LABS: Chol/HDL Ratio 2.3 (0-4.9); Cholesterol 144 mg/dL (< 200); HDL Cholesterol 63 mg/dL (40-59); LDL Cholesterol,Calculated 65 mg/dL (< 100); Magnesium 2.1 mg/dL (1.6-2.6); Phosphorous 3.5 mg/dL (2.7-4.5); Triglycerides 78 mg/dL (< 150)
[2021-10-02] MEDS ORDERED: Perflutren Lipid Microsphere 1.3 ML in 0.9 % Sodium Chloride 8.7 ML IVP PRN (17:10)
[2021-10-02] MEDS ORDERED: Morphine Sulfate 2 MG/ML SYRINGE IVP ONE (18:23)
[2021-10-02] MEDS ORDERED: Ondansetron 4 MG/2 ML VIAL IVP PRN (18:25)
[2021-10-02] MEDS ORDERED: Isovue-370 500 ML BOTTLE IVP ONE (18:29)
[2021-10-02] MEDS: niCARdipine 20 MG/200 ML MLS IVC SCH (18:40)
[2021-10-02 18:56] LABS: Red Blood Count 3.76 M/mcL (3.82-4.97); Red Cell Distribution Width 19.9 % (11.5-14.5)
[2021-10-02 18:58] LABS: Hematocrit 27.6 % (35.3-44.9); Hemoglobin 7.4 g/dL (11.5-15.4); Immature Platelets 7.5 % (1.1-6.1); Immature Reticulocyte % 34.2 % (11.0-38.0); Mean Corpuscular HGB Conc 26.8 g/dL (31.6-35.5); Mean Corpuscular Hemoglobin 19.7 pg (28.0-33.3); Mean Corpuscular Volume 73.4 fL (83.0-100.0); Mean Platelet Volume 11.2 fL (9.4-12.4); Platelet Count 166 K/mcL (140-400); Retculocyte # 0.08 M/mcL (0.05-0.10); Reticulocyte % 2.2 % (1.6-2.8); White Blood Count 5.8 K/mcL (4.3-11.1)
[2021-10-02 19:21] LABS: Alanine Aminotransferase 21 Units/L (7-52); Albumin 3.8 g/dL (3.5-5.7); Albumin/Globulin Ratio 1.2 (1.1-2.2); Alkaline Phosphatase 68 Units/L (34-104); Aspartate Amino Transferase 28 Units/L (13-39); Bilirubin,Direct 0.1 mg/dL (0.0-0.2); Bilirubin,Indirect 0.3 mg/dL (0.0-1.0); Bilirubin,Total 0.4 mg/dL (0.3-1.0); Globulin 3.2 g/dL (2.4-3.5); Iron < 10 mcg/dL (50-170); Lactate Dehydrogenase 216 Units/L (140-271); Transferrin 383 mg/dL (203-362); Troponin I < 0.03 ng/mL (< 0.04)
[2021-10-02 19:37] LABS: Ferritin < 8 ng/mL (10-120); Thyroid Stimulating Hormone 1.198 mcIU/mL (0.340-5.600)
[2021-10-02 19:39] LABS: Folate > 22.3 ng/mL (3.0-16.0); Vitamin B12 514 pg/mL (250-1100)
[2021-10-02 21:03] LABS: Hypochromasia Present (Not Present); Large Platelets Present (Not Present); Lymphocytes # 1.4 K/mcL (0.6-4.6); Monocytes # 0.4 K/mcL (0.0-1.3); Neutrophils # 4.1 K/mcL (1.6-8.9); Platelet Estimate Normal (Normal); Poikilocytosis 1+ (Not Present)
[2021-10-02 21:33] LABS: Bilirubin,Urine Negative (Negative); Blood,Urine Negative (Negative); Clarity,Urine Clear (Clear); Color,Urine Colorless (Yellow); Glucose,Urine (UA) Normal (Normal); Ketones,Urine Negative (Negative); Leukocyte Esterase,Urine Negative (Negative); Nitrite,Urine Negative (Negative); PH,Urine 7.5 pH Units (5.0-8.0); Protein,Urine Negative (Neg-Trace); Specific Gravity,Urine 1.015 (1.010-1.025); Urobilinogen,Urine Normal (Normal)
[2021-10-02] MEDS: Ciprofloxacin/Dex *EAR* Susp 7.5 ML BOTTLE BOTH EARS SCH (23:30)
[2021-10-03] MEDS: niCARdipine 20 MG/200 ML MLS IVC SCH ×4 (00:01→12:09)
[2021-10-03 02:36] LABS: Eosinophils % 0.8 %; Mean Corpuscular Volume 73.4 fL (83.0-100.0)
[2021-10-03 02:37] LABS: Basophils # 0.1 K/mcL (0.0-0.2); Basophils % 0.7 %; Eosinophils # 0.1 K/mcL (0.0-0.6); Hematocrit 28.9 % (35.3-44.9); Hemoglobin 7.7 g/dL (11.5-15.4); Immature Granulocytes % 0.4 % (0-4); Immature Platelets 6.8 % (1.1-6.1); Lymphocytes % 14.3 %; Mean Corpuscular HGB Conc 26.6 g/dL (31.6-35.5); Mean Corpuscular Hemoglobin 19.5 pg (28.0-33.3); Mean Platelet Volume 10.3 fL (9.4-12.4); Monocytes # 0.6 K/mcL (0.0-1.3); Monocytes % 7.9 %; Platelet Count 187 K/mcL (140-400); Red Blood Count 3.94 M/mcL (3.82-4.97); Red Cell Distribution Width 20.1 % (11.5-14.5); Segmented Neutrophils % 75.9 %; White Blood Count 7.2 K/mcL (4.3-11.1)
[2021-10-03 02:41] LABS: Neutrophils # 5.5 K/mcL (1.6-8.9)
[2021-10-03 02:44] LABS: INR 1.1; Prothrombin Time 11.9 Seconds (9.4-12.1)
[2021-10-03 02:49] LABS: Alanine Aminotransferase 23 Units/L (7-52); Albumin/Globulin Ratio 1.2 (1.1-2.2); Alkaline Phosphatase 74 Units/L (34-104); Aspartate Amino Transferase 27 Units/L (13-39); BUN/Creatinine Ratio 18 (6-26); Bilirubin,Total 0.6 mg/dL (0.3-1.0); Blood Urea Nitrogen 10 mg/dL (8-23); Carbon Dioxide 25 mEq/L (23-29); Chloride 104 mEq/L (98-107); Globulin 3.4 g/dL (2.4-3.5); Glucose 127 mg/dL (70-105); Osmolality,Calculated 287 (280-300); Potassium 3.5 mEq/L (3.5-5.1); Sodium 138 mEq/L (136-145); Total Protein 7.4 g/dL (6.4-8.9); eGFR For African Americans > 60 (> 60); eGFR For Non-African Americans > 60 (> 60)
[2021-10-03 03:16] LABS: Anisocytosis 2+ (Not Present); Hypochromasia Present (Not Present); Platelet Estimate Normal (Normal)
[2021-10-03 03:17] LABS: Polychromasia 1+ (Not Present)
[2021-10-03] MEDS ORDERED: *HR* Enoxaparin 40 MG/0.4 ML SYRINGE SQ SCH (06:00)
[2021-10-03] MEDS ORDERED: Nystatin POWDER 30 GM BOTTLE TP PRN (08:11)
[2021-10-03] MEDS ORDERED: Gabapentin 300 MG CAPSULE PO PRN (08:11)
[2021-10-03] MEDS: Acetaminophen 325 MG TABLET PO PRN (09:33)
[2021-10-03] MEDS: Metoprolol XL (24 HR) Succ 25 MG TAB.ER.24H PO SCH (09:33)
[2021-10-03] MEDS: Aspirin 81 MG TAB.CHEW PO SCH (09:33)
[2021-10-03] MEDS: *HR* Ticagrelor 90 MG TABLET PO SCH ×2 (09:34→20:14)
[2021-10-03] MEDS ORDERED: Prochlorperazine 10 MG/2 ML VIAL IVP ONE (10:03)
[2021-10-03] MEDS ORDERED: Ketorolac 30 MG/ML VIAL IVP ONE (10:03)
[2021-10-03] MEDS: Nitroglycerin 0.4 MG TAB.SUBL SL SCH (10:32)
[2021-10-03] MEDS: amLODIPine 5 MG TABLET PO SCH (12:46)
[2021-10-03] MEDS: Ciprofloxacin/Dex *EAR* Susp 7.5 ML BOTTLE BOTH EARS SCH ×2 (12:46→20:14)
[2021-10-03] MEDS: Iron Sucrose Complex 250 MG in 0.9 % Sodium Chloride 250 ML IVPB SCH (18:22)
[2021-10-04 02:42] LABS: Hemoglobin 7.7 g/dL (11.5-15.4)
[2021-10-04 02:44] LABS: Basophils # 0.1 K/mcL (0.0-0.2); Basophils % 0.8 %; Eosinophils # 0.2 K/mcL (0.0-0.6); Eosinophils % 2.5 %; Hematocrit 28.9 % (35.3-44.9); Immature Granulocytes % 0.3 % (0-4); Immature Platelets 7.7 % (1.1-6.1); Lymphocytes # 1.2 K/mcL (0.6-4.6); Lymphocytes % 19.3 %; Mean Corpuscular HGB Conc 26.6 g/dL (31.6-35.5); Mean Corpuscular Hemoglobin 19.9 pg (28.0-33.3); Mean Corpuscular Volume 74.9 fL (83.0-100.0); Mean Platelet Volume 11.2 fL (9.4-12.4); Monocytes # 0.9 K/mcL (0.0-1.3); Monocytes % 14.3 %; Platelet Count 205 K/mcL (140-400); Red Blood Count 3.86 M/mcL (3.82-4.97); Red Cell Distribution Width 20.2 % (11.5-14.5); Segmented Neutrophils % 62.8 %; White Blood Count 6.3 K/mcL (4.3-11.1)
[2021-10-04 03:00] LABS: BUN/Creatinine Ratio 25 (6-26); Blood Urea Nitrogen 20 mg/dL (8-23); Calcium 8.8 mg/dL (8.6-10.3); Carbon Dioxide 24 mEq/L (23-29); Chloride 106 mEq/L (98-107); Glucose 106 mg/dL (70-105); Osmolality,Calculated 291 (280-300); Potassium 3.8 mEq/L (3.5-5.1); Sodium 139 mEq/L (136-145); eGFR For African Americans > 60 (> 60); eGFR For Non-African Americans > 60 (> 60)
[2021-10-04 03:07] LABS: Anisocytosis 2+ (Not Present); Platelet Estimate Normal (Normal)
[2021-10-04 03:08] LABS: Hypochromasia Present (Not Present); Macrocytosis Present (Not Present); Microcytosis Present (Not Present)
[2021-10-04] MEDS: Acetaminophen 325 MG TABLET PO PRN (04:14)
[2021-10-04] MEDS ORDERED: *HR* OxyCODONE Immed Rel 5 MG TABLET PO PRN (08:13)
[2021-10-04] MEDS: Aspirin 81 MG TAB.CHEW PO SCH (09:04)
[2021-10-04] MEDS: Ciprofloxacin/Dex *EAR* Susp 7.5 ML BOTTLE BOTH EARS SCH ×2 (09:05→20:01)
[2021-10-04] MEDS: *HR* Ticagrelor 90 MG TABLET PO SCH ×2 (09:05→20:00)
[2021-10-04] MEDS: Iron Sucrose Complex 250 MG in 0.9 % Sodium Chloride 250 ML IVPB SCH (09:05)
[2021-10-04] MEDS: amLODIPine 5 MG TABLET PO SCH (09:05)
[2021-10-04] MEDS: Metoprolol XL (24 HR) Succ 25 MG TAB.ER.24H PO SCH (09:05)
[2021-10-04] MEDS: *HR* HYDROcodone/Acet 5/325 mg TABLET PO PRN ×2 (14:07→20:00)
[2021-10-05 05:18] LABS: Basophils # 0.1 K/mcL (0.0-0.2); Basophils % 1.7 %; Eosinophils # 0.3 K/mcL (0.0-0.6); Eosinophils % 5.4 %; Hematocrit 26.3 % (35.3-44.9); Immature Granulocytes % 0.6 % (0-4); Immature Platelets 5.9 % (1.1-6.1); Lymphocytes # 1.5 K/mcL (0.6-4.6); Lymphocytes % 28.1 %; Mean Corpuscular HGB Conc 26.6 g/dL (31.6-35.5); Mean Corpuscular Hemoglobin 19.7 pg (28.0-33.3); Mean Corpuscular Volume 73.9 fL (83.0-100.0); Mean Platelet Volume 10.6 fL (9.4-12.4); Monocytes # 0.9 K/mcL (0.0-1.3); Monocytes % 17.1 %; Neutrophils # 2.5 K/mcL (1.6-8.9); Nucleated Red Blood Cells 0.8 /100 WBC (0); Platelet Count 224 K/mcL (140-400); Red Blood Count 3.56 M/mcL (3.82-4.97); Red Cell Distribution Width 20.4 % (11.5-14.5); Segmented Neutrophils % 47.1 %; White Blood Count 5.3 K/mcL (4.3-11.1)
[2021-10-05 05:38] LABS: BUN/Creatinine Ratio 29 (6-26); Blood Urea Nitrogen 16 mg/dL (8-23); Calcium 8.7 mg/dL (8.6-10.3); Carbon Dioxide 25 mEq/L (23-29); Chloride 108 mEq/L (98-107); Glucose 89 mg/dL (70-105); Osmolality,Calculated 291 (280-300); Potassium 3.8 mEq/L (3.5-5.1); Sodium 140 mEq/L (136-145); eGFR For African Americans > 60 (> 60); eGFR For Non-African Americans > 60 (> 60)
[2021-10-05 05:43] LABS: Hypochromasia Present (Not Present); Platelet Estimate Normal (Normal)
[2021-10-05 05:44] LABS: Anisocytosis 2+ (Not Present)
[2021-10-05] MEDS: *HR* HYDROcodone/Acet 5/325 mg TABLET PO PRN (06:12)
[2021-10-05] MEDS: Aspirin 81 MG TAB.CHEW PO SCH (08:05)
[2021-10-05] MEDS: *HR* Ticagrelor 90 MG TABLET PO SCH (08:05)
[2021-10-05] MEDS: Metoprolol XL (24 HR) Succ 25 MG TAB.ER.24H PO SCH (08:05)
[2021-10-05] MEDS: Ciprofloxacin/Dex *EAR* Susp 7.5 ML BOTTLE BOTH EARS SCH (08:06)
[2021-10-05] MEDS: Iron Sucrose Complex 250 MG in 0.9 % Sodium Chloride 250 ML IVPB SCH (08:07)
[2021-10-05] MEDS ORDERED: amLODIPine 5 MG TABLET PO SCH (09:00)
[2021-10-05 11:42] VITALS: BP 128/57; PULSE 59; TEMP 98.6; O2SAT 100
== END 2021-10-05 14:41 | disposition home or self-care (01) | DRG 305 ==
LOC: 3BNU 13:11 → EMEROOARM 13:11 → SUATTDRO 16:38 → 3BNU 17:37 → 2NNU 17:42
PROVIDERS: ADMIT Internal Medicine; ATTEND Student in an Organized Health Care Education/Training Program